=== PATIENT | female | born 1970 | race Caucasian/White ===

== ENCOUNTER 2016-12-11 12:02 | Emergency (ER) | END 2016-12-11 14:55 | disposition home or self-care (01) | DX: J06.9 Acute upper respiratory infection, unspecified (principal) ==

== ENCOUNTER 2017-02-03 08:59 | Emergency (ER) | payer MEDICAID ==
[~2017-02-03] VITALS: Ht 160 cm; Wt 60.0 kg
[~2017-02-03 08:59] MED LIST: AZIT250T94 PO; IBUP400T22 PO; UDROBDM PO
[2017-02-03 09:03] VITALS: Ht 160 cm; Wt 60.0 kg
[2017-02-03] MEDS ORDERED: KETOROLAC 30 MG INJ IM STA (10:24)
--- NOTE | 2017-02-03 10:50 | ERD ---
ER Documentation Chief Complaint Date/Time DATE: 02/03/17 TIME: 10:46 Chief Complaint lt shoulder , upper back , lt leg pain x 5 days , no trauma HPI Is a 46-year-old female who presents emergency department today complaining of left shoulder pain that starts up in her neck and goes all the way down her arm , left leg pain, pain on the top of her head and heart palpitations for the past 5 days. 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 Denies any trauma. Denies any chest pain, shortness of breath, dizziness. ROS All systems reviewed and are negative except as per history of present illness. Medications Home Meds Active Scripts Acetaminophen* (Tylophen*) 500 Mg Capsule, 1 CAP PO Q6H Y for PAIN AND OR ELEVATED TEMP, #30 CAP Prov:JAYME VILLEGAS PA-C 02/03/17 Cyclobenzaprine Hcl* (Cyclobenzaprine Hcl*) 10 Mg Tablet, 10 MG PO QHS, #7 TAB Prov:JAYME VILLEGAS PA-C 02/03/17 Naproxen* (Naprosyn*) 500 Mg Tablet, 500 MG PO BID Y for PAIN AND/OR INFLAMMATION, #30 TAB Prov:JAYME VILLEGAS PA-C 02/03/17 Guaifenesin-Dextromethorphan* (Robitussin* DM) 100MG/10MG/5ML Syrup, 5 ML PO Q4H for 5 Days, ML 6 oz Prov:LULU ALMANZA MD 12/11/16 Ibuprofen* (Motrin*) 400 Mg Tab, 400 MG PO Q6, #15 TAB Prov:LULU ALMANZA MD 12/11/16 Azithromycin* (Zithromax*) 250 Mg Tablet, 250 MG PO .ZPACK DIRECTED, #6 TAB TAKE 500 MG (2 TABS) THE FIRST DAY THEN 250 MG (1 TAB) DAYS 2-5 Prov:LULU ALMANZA MD 12/11/16 Allergies Allergies: Coded Allergies: No Known Allergy (Unverified , 12/29/14) PMhx/Soc History of Surgery: Yes (C SECTION) Anesthesia Reaction: No Hx Neurological Disorder: No Hx Respiratory Disorders: No Hx Cardiac Disorders: No Hx Psychiatric Problems: No Hx Miscellaneous Medical Probl: No (per diabetes) Hx Alcohol Use: No Hx Substance Use: No Hx Tobacco Use: No Physical Exam Vitals Vital Signs Date Time Temp Pulse Resp B/P Pulse Ox O2 Delivery O2 Flow Rate FiO2 02/03/17 09:03 98.0 72 18 128/62 98 Physical Exam Const: Talkative, no acute distress Head: Atraumatic Eyes: Normal Conjunctiva. PERRLA. EOM intact. ENT: Normal External Ears, Nose and Mouth. Neck: Full range of motion..~ No meningismus. Left-sided paraspinal tenderness and lower trapezius tenderness to palpation Resp: Clear to auscultation bilaterally Cardio: Regular rate and rhythm, no murmurs Skin: No petechiae or rashes Back: No midline or flank tenderness Ext: No cyanosis, or edema left arm pulses 2+. Neurovascularly intact per full active range of motion. Left leg full active range of motion. Pulses 2+. Distal neurovascularly intact. Neur: Awake and alert. Cranial nerves II through XII intact. No gait ataxia Psych: Normal Mood and Affect Results 24 hrs Current Medications Medications (Trade) Dose Ordered Sig/Tracey Route PRN Reason Start Time Stop Time Status Last Admin Dose Admin Ketorolac Tromethamine (Toradol) 30 mg ONCE STAT IM 02/03/17 10:24 02/03/17 10:27 DC 02/03/17 10:48 Procedures/MDM This 46-year-old female who presents to the emergency department today with multiple complaints. Patient was concerned about her heart having palpitations and pain in her left arm. I did do an EKG. EKG read and interpreted by Dr. Ace Rate: [address] elevation. No QT prolongation. Normal sinus rhythm. Low suspicion for acute [place], PE, pericarditis per Patient has had no trauma and she has good pulses. I do not feel that she requires further laboratory workup or imaging at this time. Patient is afebrile and otherwise well-appearing. She is not tachycardic. Her oxygen saturations 98%. I have low suspicion for PE or DVT. Low suspicion for acute fracture dislocation. Low suspicion for septic joint or gout. Patient has no focal neurologic deficits and no gait ataxia. Do not feel that she requires a head CT scan at this time low suspicion for acute hemorrhage, mass, abscess. Patient arm and leg complaints symptoms appear to be musculoskeletal given her tenderness palpation in her lower trap versus anxiety related symptoms. Patient was given a Toradol injection here in the emergency department. I will give her prescription for Naprosyn, Tylenol and Flexeril for home. At this time the patient is stable for discharge and outpatient management. Patient should follow up with their PCP in the next 1-2 days. They may return to the emergency department sooner for any persistent or worsening of symptoms. Patient understood and agreed with the plan. Departure Diagnosis: Primary Impression: Multiple complaints Condition: JAYME Malone PA-C February 03, 2017 10:50
[2017-02-03] MEDS ORDERED: CYCL-319 PO (10:51)
[2017-02-03] MEDS ORDERED: NAPR-260 PO (10:51)
[2017-02-03] MEDS ORDERED: ACET500C5 PO (10:52)
[2017-02-03 11:49] VITALS: BP 122/68; PULSE 86; RESP 18
== END 2017-02-03 11:51 | disposition home or self-care (01) ==
LOC: FTE 08:59
DX: M25.512 Pain in left shoulder (principal); M54.6 Pain in thoracic spine; M79.605 Pain in left leg; R51 Headache; R00.2 Palpitations
CPT/HCPCS: 93005; 96372; J1885; Z7502

== ENCOUNTER 2017-06-21 08:58 | Emergency (ER) | payer MEDICAID ==
[~2017-06-21] VITALS: Ht 152.4 cm; Wt 62.5 kg
[~2017-06-21 08:58] MED LIST changes: +ACET500C5 PO; +CYCL-319 PO; +NAPR-260 PO
[2017-06-21 09:00] VITALS: Ht 152.4 cm; Wt 62.5 kg
[2017-06-21] MEDS ORDERED: ACETAMINOPHEN 325 MG TAB PO ONE (10:30)
[2017-06-21 10:39] LABS: BASOPHIL # 0.1 10^3/ul (0.0-0.1); BASOPHILS % 0.6 % (0.0-2.0); EOSINOPHILS # 0.1 10^3/ul (0.0-0.5); EOSINOPHILS % 1.3 % (0.0-7.0); HEMATOCRIT 42.8 % (37.0-47.0); HEMOGLOBIN 14.5 g/dl (12.0-16.0); LYMPHOCYTES # 2.4 10^3/ul (0.8-2.9); LYMPHOCYTES % 25.1 % (15.0-51.0); MEAN CORPUSCULAR HEMOGLOBIN 31.9 pg (29.0-33.0); MEAN CORPUSCULAR HGB CONC 33.9 g/dl (32.0-37.0); MEAN CORPUSCULAR VOLUME 94.3 fl (82.0-101.0); MEAN PLATELET VOLUME 10.7 fl (7.4-10.4); MONOCYTE # 0.7 10^3/ul (0.3-0.9); MONOCYTES % 7.1 % (0.0-11.0); NEUTROPHIL # 6.2 10^3/ul (1.6-7.5); NEUTROPHILS % 65.5 % (39.0-77.0); PLATELET COUNT 266 10^3/UL (140-415); RED BLOOD COUNT 4.54 10^6/ul (4.20-5.40); RED CELL DISTRIBUTION WIDTH 13.1 % (11.5-14.5); WHITE BLOOD COUNT 9.5 10^3/ul (4.8-10.8)
[2017-06-21 10:48] LABS: ADD UMIC YES; UR ASCORBIC ACID NEGATIVE (NEGATIVE); UR BACTERIA FEW /HPF (NONE SEEN); UR BILIRUBIN (Dip) NEGATIVE (NEGATIVE); UR BLOOD (Dip) 1+ mg/dL (NEGATIVE); UR CLARITY CLEAR (CLEAR); UR COLOR STRAW (YELLOW); UR GLUCOSE (Dip) NEGATIVE (NEGATIVE); UR KETONES (Dip) NEGATIVE (NEGATIVE); UR LEUKOCYTE ESTERASE (Dip) NEGATIVE Leu/ul (NEGATIVE); UR NITRITE (Dip) NEGATIVE (NEGATIVE); UR RBC 2 /HPF (0-5); UR SPECIFIC GRAVITY (Dip) 1.009 (1.003-1.030); UR SQUAMOUS EPITHELIAL CELL FEW /HPF (FEW); UR TOTAL PROTEIN (Dip) NEGATIVE (NEGATIVE); UR UROBILINOGEN (Dip) NEGATIVE (NEGATIVE)
[2017-06-21 10:54] LABS: ALBUMIN 4.6 g/dl (3.3-4.9); ALBUMIN/GLOBULIN RATIO 1.31; BILIRUBIN,INDIRECT 0.4 mg/dl (0-1.1); BILIRUBIN,TOTAL 0.4 mg/dl (0.2-1.3); CALCIUM 9.5 mg/dl (8.4-10.2); CREATININE 0.68 mg/dl (0.44-1.00); POTASSIUM 4.4 mmol/L (3.5-5.1); TOTAL PROTEIN 8.1 g/dl (6.1-8.1)
--- NOTE | 2017-06-21 11:20 | RADRPT ---
PROCEDURE: CT Abdomen and pelvis without contrast. CLINICAL INDICATION: left flank pain for 8 days TECHNIQUE: CT scan of the abdomen and pelvis without contrast was performed on a multidetector hig h-resolution CT scan. . Coronal and sagittal reformatted images were obtained from the axial [facility] e images. Standard CT scan of the abdomen pelvis without contrast protocols were performed. The total exam CTDI equals 6.57 mGy and the total exam DLP equals 350.58 mGy-cm. One or more of the following dose reduction techniques were used: - Automated exposure control. - Adjustment of the mA and/or kV according to patient size. Use of iterative reconstruction technique. COMPARISON: Abdominal ultrasound 12/29/2014 FINDINGS: The kidneys are normal in size without calcified renal calculi, hydronephrosis or intra renal masses bilaterally. The urinary bladder is unremarkable. The uterus is anteflexed and fairly elongated with central low density likely all menstrual changes. No evidence of adnexal masses. Negative for intra-abdominal free air, free fluid, abscesses or lymp hadenopathy. Liver spleen pancreas adrenal glands and gallbladder are unremarkable. No evidence of biliary ductal dilation. The stomach, small bowel, large bowel and appendix are unremarkable. Abdominal/pelvic wall unremarkable. Aorta unremarkable. Lung bases unremarkable. Osseous structures unremarkable. IMPRESSION: 1. No evidence of calcified urinary calculi or obstructive uropathy. 2. No gastrointestinal disease. Unremarkable appendix. 4. Negative for intra-abdominal free air fluid abscesses or lymphadenopathy. RPTAT:AAJJ Physician Bambi Date Time Electronically viewed and signed by Physician Bambi on 06/21/2017 11:20 BM/
[2017-06-21] MEDS ORDERED: ACET500C5 PO (11:54)
--- NOTE | 2017-06-21 12:05 | ERD ---
ER Documentation Chief Complaint Date/Time DATE: 06/21/17 TIME: 11:57 Chief Complaint left flank pain x 8 days HPI 46-year-old female patient with a past medical history of acid reflux presents to the ED complaining of left flank pain that started intermittently since 8 days ago. Describes the pain as sharp and located on her right flank and radiates down to her abdomen. Rates the pain an 8 out of 10. Reports that her last bowel movement was this morning. She tried taking ibuprofen at home with no relief of her pain. Denies any diarrhea, fever, chills, nausea, vomiting, chest pain, shortness of breath, wheezing. Denies any dysuria, urgency, frequency, hematuria, vaginal bleeding, vaginal discharge. Reports that her last menstruation was on June 09, 2017. ROS All systems reviewed and are negative except as per history of present illness. Medications Home Meds Active Scripts Acetaminophen* (Tylophen*) 500 Mg Capsule, 1 CAP PO Q6H Y for PAIN AND OR ELEVATED TEMP, #20 CAP Prov:TONJA BLANCO PA-C 06/21/17 Acetaminophen* (Tylophen*) 500 Mg Capsule, 1 CAP PO Q6H Y for PAIN AND OR ELEVATED TEMP, #30 CAP Prov:JAYME VILLEGAS PA-C 02/03/17 Cyclobenzaprine Hcl* (Cyclobenzaprine Hcl*) 10 Mg Tablet, 10 MG PO QHS, #7 TAB Prov:JAYME VILLEGAS PA-C 02/03/17 Naproxen* (Naprosyn*) 500 Mg Tablet, 500 MG PO BID Y for PAIN AND/OR INFLAMMATION, #30 TAB Prov:JAYME VILLEGAS PA-C 02/03/17 Guaifenesin-Dextromethorphan* (Robitussin* DM) 100MG/10MG/5ML Syrup, 5 ML PO Q4H for 5 Days, ML 6 oz Prov:LULU ALMANZA MD 12/11/16 Ibuprofen* (Motrin*) 400 Mg Tab, 400 MG PO Q6, #15 TAB Prov:LULU ALMANZA MD 12/11/16 Azithromycin* (Zithromax*) 250 Mg Tablet, 250 MG PO .DELMIS DIRECTED, #6 TAB TAKE 500 MG (2 TABS) THE FIRST DAY THEN 250 MG (1 TAB) DAYS 2-5 Prov:LULU ALMANZA MD 12/11/16 Allergies Allergies: Coded Allergies: No Known Allergy (Unverified , 12/29/14) PMhx/Soc History of Surgery: No Anesthesia Reaction: No Hx Neurological Disorder: No Hx Respiratory Disorders: No Hx Cardiac Disorders: No Hx Psychiatric Problems: No Hx Miscellaneous Medical Probl: No Hx Alcohol Use: No Hx Substance Use: No Hx Tobacco Use: No Smoking Status: Never smoker Physical Exam Vitals Vital Signs Date Time Temp Pulse Resp B/P Pulse Ox O2 Delivery O2 Flow Rate FiO2 06/21/17 09:00 98.8 82 16 128/62 100 Physical Exam Const: [id number], well-nourished. In no acute distress. Head: Atraumatic, normocephalic Eyes: Normal Conjunctiva without injection. No purulent discharge. ENT: Normal external ear, nose. Moist oropharynx without tonsillar exudates. Non -erythematous pharynx. Uvula midline. No drooling. No trismus. Neck: No cervical midline tenderness. Full range of motion. No meningismus. No cervical lymphadenopathy. No JVD. Resp: Clear to auscultation bilaterally. No wheezing, rhonchi, rales, or crackles. No accessory muscle use. No retractions. Cardio: Regular rate and rhythm. No murmurs, rubs or gallops. Abd: Soft, right and left lower quadrant tenderness, non distended. Normal bowel sounds. No palpable masses. No rebound tenderness. No guarding. Negative McBurney's point. Negative psoas sign. Negative obturator sign. Skin: No petechiae or rashes Back: No midline tenderness. No CVA tenderness. Ext: No cyanosis, or edema. Neur: Awake and alert. Normal gait. Normal coordination. Psych: Normal Mood and Affect Result Diagram: 06/21/17 1025 06/21/17 1025 Results 24 hrs Laboratory Tests Test 06/21/17 10:20 06/21/17 10:25 Urine Color STRAW Urine Clarity CLEAR Urine pH 7.0 Urine Specific [place] 1.009 Urine Ketones NEGATIVEmg/dL Urine Nitrite NEGATIVEmg/dL Urine Bilirubin NEGATIVEmg/dL Urine Urobilinogen NEGATIVEmg/dL Urine Leukocyte Esterase NEGATIVELeu/ul Urine Microscopic RBC 2/HPF Urine Microscopic WBC 2/HPF Urine Squamous Epithelial Cells FEW/HPF Urine Bacteria FEW/HPF Urine Hemoglobin 1+mg/dL Urine Glucose NEGATIVEmg/dL Urine Total Protein NEGATIVEmg/dl White Blood Count 9.510^3/ul Red Blood Count 4.5410^6/ul Hemoglobin 14.5g/dl Hematocrit 42.8% Mean Corpuscular Volume 94.3fl Mean Corpuscular Hemoglobin 31.9pg Mean Corpuscular Hemoglobin Concent 33.9g/dl Red Cell Distribution Width 13.1% Platelet Count 80393^3/UL Mean Platelet Volume 10.7fl Neutrophils % 65.5% Lymphocytes % 25.1% Monocytes % 7.1% Eosinophils % 1.3% Basophils % 0.6% Nucleated Red Blood Cells % 0.0/100WBC Neutrophils # 6.210^3/ul Lymphocytes # 2.410^3/ul Monocytes # 0.710^3/ul Eosinophils # 0.110^3/ul Basophils # 0.110^3/ul Nucleated Red Blood Cells # 0.010^3/ul Sodium Level 139mmol/L Potassium Level 4.4mmol/L Chloride Level 103mmol/L Carbon Dioxide Level 28mmol/L Anion Gap 12 Blood Urea Nitrogen 10mg/dl Creatinine 0.68mg/dl Glucose Level 102mg/dl Calcium Level 9.5mg/dl Total Bilirubin 0.4mg/dl Direct Bilirubin 0.00mg/dl Indirect Bilirubin 0.4mg/dl Aspartate Amino Transf (AST/SGOT) 20IU/L Alanine Aminotransferase (ALT/SGPT) 28IU/L Alkaline Phosphatase 69IU/L Total Protein 8.1g/dl Albumin 4.6g/dl Globulin 3.50g/dl Albumin/Globulin Ratio 1.31 Lipase 50U/L Current Medications Medications (Trade) Dose Ordered Sig/Tracey Route PRN Reason Start Time Stop Time Status Last Admin Dose Admin Acetaminophen (Tylenol Tab) 650 mg ONCE ONCE PO 06/21/17 10:30 06/21/17 10:31 DC 06/21/17 10:14 Procedures/MDM 26-year-old female patient with no sniffing a past medical history presents to the ED complaining of right flank pain radiating down her abdomen. Patient is afebrile and nontoxic-appearing. Patient has normal vital signs. Patient was further worked up with CBC, CMP, lipase, UA, CT of abdomen and pelvis without contrast. Patient's pain and symptoms have improved after treatment with Tylenol. CBC: No leukocytosis. No e/o of systemic infection. No e/o anemia. CMP: No e/o severe acidosis, alkalosis, renal failure, diabetic ketoacidosis, liver disease Lipase within normal limits. Urine: No leukocyte esterase, no nitrites, +1 hematuria. Urine : negative ROCEDURE: CT Abdomen and pelvis without contrast. CLINICAL INDICATION: left flank pain for 8 days TECHNIQUE: CT scan of the abdomen and pelvis without contrast was performed on a multidetector high-resolution CT scan. . Coronal and sagittal reformatted images were obtained from the axial source images. Standard CT scan of the abdomen pelvis without contrast protocols were performed. The total exam CTDI equals 6.57 mGy and the total exam DLP equals 350.58 mGy- cm. One or more of the following dose reduction techniques were used: - Automated exposure control. - Adjustment of the mA and/or kV according to patient size. Use of iterative reconstruction technique. COMPARISON: Abdominal ultrasound 12/29/2014 FINDINGS: The kidneys are normal in size without calcified renal calculi, hydronephrosis or intra renal masses bilaterally. The urinary bladder is unremarkable. The uterus is anteflexed and fairly elongated with central low density likely all menstrual changes. No evidence of adnexal masses. Negative for intra- abdominal free air, free fluid, abscesses or lymphadenopathy. Liver spleen pancreas adrenal glands and gallbladder are unremarkable. No evidence of biliary ductal dilation. The stomach, small bowel, large bowel and appendix are unremarkable. Abdominal/pelvic wall unremarkable. Aorta unremarkable. Lung bases unremarkable. Osseous structures unremarkable. IMPRESSION: 1. No evidence of calcified urinary calculi or obstructive uropathy. 2. No gastrointestinal disease. Unremarkable appendix. 4. Negative for intra-abdominal free air fluid abscesses or lymphadenopathy. Patient's flank and abdominal pain unspecified at this time. CT of the abdomen and pelvis showed no signs of appendicitis, intra-abdominal abscesses, cholecystitis. No leukocytosis. Low suspicion for ectopic , ovarian torsion, gastritis, GERD, peptic ulcer disease, cholecystitis, choledocholithiasis, cholangitis, pancreatitis, appendicitis, bowel obstruction , ileus, volvulus, nephrolithiasis, pyelonephritis, hepatitis, perforated viscus , diverticulitis, strangulated/incarcerated hernia, DKA, acute abdomen, mesenteric ischemia or other emergent conditions. Discharge medications: Tylenol Follow up with primary care physician in 1-2 days for referral to mold checker. Instructed patient to return to the ED sooner for any worsening symptoms. Patient's questions were answered. Patient understood and agreed with discharge plan. Patient discharged stable. Departure Diagnosis: Primary Impression: Flank pain Additional Impression: Abdominal pain Abdominal location: lower abdomen, unspecified Qualified Code: R10.30 - Lower abdominal pain Condition: Stable Patient Instructions: Abdominal Pain, Flank Pain, Uncertain Cause Referrals: COMMUNITY CLINICS YOU HAVE RECEIVED A MEDICAL SCREENING EXAM AND THE RESULTS INDICATE THAT YOU DO NOT HAVE A CONDITION THAT REQUIRES URGENT TREATMENT IN THE EMERGENCY DEPARTMENT. FURTHER EVALUATION AND TREATMENT OF YOUR CONDITION CAN WAIT UNTIL YOU ARE SEEN IN YOUR DOCTORS OFFICE WITHIN THE NEXT 1-2 DAYS. IT IS YOUR RESPONSIBILITY TO MAKE AN APPOINTMENT FOR FOLOW-UP CARE. IF YOU HAVE A PRIMARY DOCTOR --you should call your primary doctor and schedule an appointment IF YOU DO NOT HAVE A PRIMARY DOCTOR YOU CAN CALL OUR PHYSICIAN REFERRAL HOTLINE AT IF YOU CAN NOT AFFORD TO SEE A PHYSICIAN YOU CAN CHOSE FROM THE FOLLOWING [facility] [address] [facility]. [facility] [address] [facility]. [facility] [address] [facility]. [facility] [address] [facility]. [facility] [address] [facility]. [facility]. [address] [facility]. [facility] YOU HAVE RECEIVED A MEDICAL SCREENING EXAM AND THE RESULTS INDICATE THAT YOU DO NOT HAVE A CONDITION THAT REQUIRES URGENT TREATMENT IN THE EMERGENCY DEPARTMENT. FURTHER EVALUATION AND TREATMENT OF YOUR CONDITION CAN WAIT UNTIL YOU ARE SEEN IN YOUR DOCTORS OFFICE WITHIN THE NEXT 1-2 DAYS. IT IS YOUR RESPONSIBILITY TO MAKE AN APPOINTMENT FOR FOLOW-UP CARE. IF YOU HAVE A PRIMARY DOCTOR --you should call your primary doctor and schedule and appointment IF YOU DO NOT HAVE A PRIMARY DOCTOR YOU CAN CALL OUR PHYSICIAN REFERRAL HOTLINE AT . IF YOU CAN NOT AFFORD TO SEE A PHYSICIAN YOU CAN CHOSE FROM THE FOLLOWING FORMERLY [facility], [facility] INSTITUTIONS: [facility] [address] [place] [address] [facility] [address] [place] [address] [facility] [address] [place] [address] [facility] URGENT CARE/SPECIALTIES Additional Instructions: Call your primary care doctor TOMORROW for an appointment during the next 2-3 days.See the doctor sooner or return here if your condition worsens before your appointment time. TONJA BLANCO PA-C Jun 21, 2017 12:05
== END 2017-06-21 11:55 | disposition home or self-care (01) ==
LOC: FTE 08:58
DX: R10.32 Left lower quadrant pain (principal); R10.31 Right lower quadrant pain
CPT/HCPCS: 36415; 74176; 80053; 81001; 83690; 85025; Z7502; Z7610

== ENCOUNTER 2018-02-26 10:56 | Emergency (ER) | END 2018-02-26 13:10 | disposition home or self-care (01) ==

== ENCOUNTER 2018-05-29 13:23 | Emergency (ER) | END 2018-05-29 18:42 | disposition home or self-care (01) ==

== ENCOUNTER 2019-07-21 12:52 | Emergency (ER) | payer MEDICAID ==
[~2019-07-21] VITALS: Ht 157.5 cm; Wt 61.6 kg
[~2019-07-21 12:52] MED LIST changes: +AZIT250T PO; -AZIT250T94 PO; +CEPH-443 PO; -CYCL-319 PO; +CYCL10TA7 PO; +GUAI5SYR2 PO; +IBUP-1542 PO; +IBUP-1561 PO; -IBUP400T22 PO; +MED4DP PO; -NAPR-260 PO; +NAPR-985 PO; +PHEN-538 PO; -UDROBDM PO
[2019-07-21 12:55] VITALS: BP 131/75; PULSE 76; RESP 17; Ht 157.5 cm; Wt 61.6 kg
== END 2019-07-21 12:55 | disposition home or self-care (01) ==
LOC: E/R 12:52
DX: R39.9 Unspecified symptoms and signs involving the genitourinary system (principal)
CPT/HCPCS: 81001; 84703; Z7502; 99283